=== PATIENT | male | born 1955 | race Caucasian/White ===

== ENCOUNTER 2017-11-30 10:21 | Outpatient (CLI) | payer OTHER ==
--- NOTE | 2017-11-30 11:29 | RAD ---
THREE VIEWS RIGHT SHOULDER: Date: 11-30-17 Comparison: None. History: Right sided shoulder pain. FINDINGS: There is AC joint degenerative change with joint space narrowing and inferior osteophyte formation. T here is no widening of the AC or CC interspace and there is no displaced fracture or dislocation seen . 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 POS: LG
== END 2017-11-30 10:22 | disposition home or self-care (01) ==
LOC: NAV RAD 10:21
PROVIDERS: ATTEND Family Medicine
DX: M25.511 Pain in right shoulder (principal); M19.011 Primary osteoarthritis, right shoulder